=== PATIENT | female | born 1955 | race Caucasian/White ===

== ENCOUNTER → 2017-07-20 | Outpatient (CLI) | payer OTHER ==
[~2017-07-20] MED LIST: CATAFLAM50 MG PO; DIOVAN160 M1; LEXAPRO5 MG PO; SEPTRA DS TABLE1 TAB PO; SINGULAIR10 MG
== END | disposition home or self-care (01) ==
LOC: NUCLEAR 12:00
DX: M81.0 Age-related osteoporosis without current pathological fracture (principal)

== ENCOUNTER 2018-09-20 08:01 | Outpatient (CLI) | payer OTHER | END 2018-09-20 08:18 | disposition home or self-care (01) | LOC: RAD 08:01 | DX: J44.1 Chronic obstructive pulmonary disease with (acute) exacerbation (principal) ==

== ENCOUNTER 2020-06-07 09:30 | Outpatient (CLI) | payer OTHER | END 2020-06-07 15:00 | disposition home or self-care (01) | LOC: LAB 09:30 | DX: Z03.818 Encounter for observation for suspected exposure to other biological agents ruled out (principal) ==

== ENCOUNTER 2020-10-28 11:21 | Outpatient (CLI) | payer OTHER | END 2020-10-28 11:30 | disposition home or self-care (01) | LOC: RAD 11:21 | PROVIDERS: ATTEND Plastic Surgery | DX: M13.841 Other specified arthritis, right hand (principal); M24.141 Other articular cartilage disorders, right hand; S62.637A Displaced fracture of distal phalanx of left little finger, initial encounter for closed fracture; S69.91XA Unspecified injury of right wrist, hand and finger(s), initial encounter; M79.644 Pain in right finger(s) ==

== ENCOUNTER 2020-12-09 16:04 | Outpatient (CLI) | payer OTHER | END 2020-12-09 17:00 | disposition home or self-care (01) | LOC: PPH VACUNA 16:04 | PROVIDERS: ATTEND Emergency Medicine Pediatric Emergency Medicine | DX: Z23 Encounter for immunization (principal) ==

== ENCOUNTER 2021-06-13 08:00 | Outpatient (CLI) | payer OTHER | END 2021-06-13 08:30 | disposition home or self-care (01) | LOC: PPH VACUNA 08:00 | PROVIDERS: ATTEND Emergency Medicine Pediatric Emergency Medicine | DX: Z23 Encounter for immunization (principal) ==

== ENCOUNTER 2021-11-24 08:31 | Outpatient (CLI) | payer OTHER | END 2021-11-24 08:41 | disposition home or self-care (01) | LOC: PPH VACUNA 08:31 | PROVIDERS: ATTEND Emergency Medicine Pediatric Emergency Medicine | DX: Z23 Encounter for immunization (principal) ==

== ENCOUNTER 2022-07-28 11:03 | Outpatient (CLI) | payer OTHER | END 2022-07-28 11:12 | disposition home or self-care (01) | LOC: RAD 11:03 | DX: M99.01 Segmental and somatic dysfunction of cervical region (principal); M99.02 Segmental and somatic dysfunction of thoracic region; M99.03 Segmental and somatic dysfunction of lumbar region; M99.04 Segmental and somatic dysfunction of sacral region; M99.05 Segmental and somatic dysfunction of pelvic region ==

== ENCOUNTER 2022-09-23 10:50 | Outpatient (CLI) | payer OTHER | END 2022-09-23 11:02 | disposition home or self-care (01) | LOC: SONOGRAMA 10:50 | PROVIDERS: ATTEND Physical Medicine & Rehabilitation | DX: M25.512 Pain in left shoulder (principal) ==

== ENCOUNTER 2024-01-12 10:58 | Outpatient (CLI) | payer OTHER | END 2024-01-12 13:34 | disposition home or self-care (01) | LOC: MAMO-SONO 10:58 | PROVIDERS: ATTEND Plastic Surgery | DX: N60.21 Fibroadenosis of right breast (principal); N60.22 Fibroadenosis of left breast ==

== ENCOUNTER 2024-12-07 11:28 | Outpatient (CLI) | payer OTHER | END 2024-12-07 11:29 | disposition home or self-care (01) | LOC: TOM 11:28 | PROVIDERS: ATTEND Specialist | DX: J43.9 Emphysema, unspecified (principal) ==